=== PATIENT | female | born 1970 | race Caucasian/White ===

== ENCOUNTER → 2018-01-05 | Outpatient (REF) ==
[~2018-01-05] MED LIST: AMOXICILLIN500 MG PO; NORCO 325 MG-51 TAB PO; PERCOCET 325 MG1 TA2 PO; PREDNISONE 10MG10 MG PO
[2018-01-05 18:45] LABS: PRE ALBUMIN 24.4 mg/dL (17.6-36.0)
== END ==
LOC: ZLAB.WCH 18:27
DX: Z01.89 Encounter for other specified special examinations (principal)

== ENCOUNTER → 2018-04-18 | Outpatient (REF) | LOC: ZLAB.WCH 08:34 | DX: Z01.89 Encounter for other specified special examinations (principal) ==